=== PATIENT | male | born 1960 | race African-American/Black ===

== ENCOUNTER 2018-04-05 01:26 | Emergency (ER) | payer OTHER ==
[~2018-04-05] VITALS: Ht 177.8 cm; Wt 99.8 kg
[2018-04-05 02:00] VITALS: BP 149/91
[2018-04-05] MEDS ORDERED: Aspirin Baby 81mg ORAL ONE (02:00)
--- NOTE | 2018-04-05 02:06 | Emergency Room Report ---
History of Present Illness General Chief Complaint: General Complaint Source: Patient Present Illness HPI Is a 57-year-old male with no past medical history. He presents with chief complaint of high blood pressure. He had dental surgery recently and was told that blood pressure was elevated. He was given enalapril which helped. He came in tonight because last couple days when his blood pressure high he felt some chest pressure and also neck pain and headache. Went to the pharmacy and his blood pressure was running systolic 150s. He was concerned as when he came in. Denies any diaphoresis, hematuria, shortness of breath. No focal deficit. Denies any other complaint. Allergies: Coded Allergies: No Known Allergies (Unverified , 04/05/18) Patient History Past Medical History: see triage record, old chart reviewed Past Surgical History: none Pertinent Family History: HTN Social History: Denies: smoking Immunizations: other Reviewed Nursing Documentation: PMH: Agreed; PSxH: Agreed Nursing Documentation-PMH Past Medical History: No Stated History Review of Systems Eye: Denies: eye pain, blurred vision ENT: Denies: ear pain, nose congestion, throat swelling Respiratory: Denies: cough, shortness of breath Cardiovascular: Reports: chest pain; Denies: palpitations Gastrointestinal: Denies: abdominal pain, diarrhea, nausea, vomiting Musculoskeletal: Denies: back pain, joint pain Skin: Denies: rash Neurological: Reports: headache; Denies: numbness Endocrine: Denies: increased thirst, increased urine Hematologic/Lymphatic: Denies: easy bruising All Other Systems: negative except mentioned in HPI Physical Exam Vital Signs Date Time Temp Pulse Resp B/P (MAP) Pulse Ox O2 Delivery O2 Flow Rate FiO2 04/05/18 01:30 98.6 67 16 149/91 96 Room Air 98.6 vitals with high blood pressure Sp02 EP Interpretation: reviewed, normal General Appearance: well appearing, no apparent distress, alert Head: normocephalic, atraumatic Eyes: bilateral eye PERRL, bilateral eye EOMI ENT: hearing grossly normal, normal pharynx Neck: full range of motion, supple, no meningismus Respiratory: chest non-tender, lungs clear, normal breath sounds Cardiovascular #1: regular rate, rhythm, no murmur Gastrointestinal: normal bowel sounds, non tender, no mass, no organomegaly, no bruit, non-distended Musculoskeletal: back normal, gait/station normal, normal range of motion Psychiatric: mood/affect normal Skin: warm/dry Medical Decision Making Diagnostic Impression: Primary Impression: Hypertension Qualified Codes: I10 - Essential (primary) hypertension ER Course Patient presents with hypertension. He had a dose of enalapril, 20 mg tonight and 6 PM. Blood pressure improved now. No evidence of endorgan damage. Since he responded to a, we'll put him back on GUERITA inhibitor. Lab Results Impression labs normal EKG Diagnostic Results Rate: normal Rhythm: NSR ST Segments: no acute changes ASA given to the pt in ED: Yes Rhythm Strip Diag. Results Rhythm Strip Time: 02:05 EP Interpretation: yes Rate: 67 Rhythm: NSR, no PVC's, no ectopy Chest X-Ray Diagnostic Results Chest X-Ray Diagnostic Results : Chest X-Ray Ordered: Yes # of Views/Limited/Complete: 1 View Indication: Chest Pain EP Interpretation: Yes Interpretation: no consolidation, no effusion, no pneumothorax, no acute cardiopulmonary disease Impression: No acute disease Electronically Signed by: Arsalan Drake MD Last Vital Signs Date Time Temp Pulse Resp B/P (MAP) Pulse Ox O2 Delivery O2 Flow Rate FiO2 04/05/18 01:30 98.6 67 16 149/91 96 Room Air 98.6 Status: improved Disposition: HOME, SELF-CARE Condition: Stable Scripts Enalapril Maleate* (ENALAPRIL MALEATE*) 20 Mg Tablet 20 MG ORAL DAILY, #90 TAB Prov: Arsalan Drake MD 04/05/18 Referrals: [facility],REFERRING (PCP) Additional Instructions: Follow-up with your doctor in 7 days for recheck on your blood pressure. Return if symptom worsen. Arsalan Drake MD Apr 05, 2018 02:06
[2018-04-05 02:14] LABS: APPEARANCE,URINE CLEAR; BILIRUBIN, URINE NEGATIVE (NEGATIVE); COLOR,URINE PALE YELLOW; GLUCOSE, URINE (UA) NEGATIVE (NEGATIVE); KETONES,URINE NEGATIVE (NEGATIVE); LEUKOCYTE ESTERASE ,URINE NEGATIVE (NEGATIVE); NITRITE,URINE NEGATIVE (NEGATIVE); PH,URINE 5 (4.5-8.0); PROTEIN,URINE NEGATIVE (NEGATIVE); UROBILINOGEN,URINE NORMAL MG/DL (0.0-1.0)
[2018-04-05 02:18] LABS: BASOPHILS % (AUTO) 1.2 % (0.0-2.0); EOSINOPHILS % (AUTO) 2.5 % (0.0-3.0); HEMATOCRIT 44.7 % (42.0-52.0); LYMPHOCYTES % (AUTO) 30.2 % (20.0-45.0); MEAN CORPUSCULAR VOLUME 84 FL (80-99); MONOCYTES % (AUTO) 9.9 % (1.0-10.0); NEUTROPHILS % (AUTO) 56.1 % (45.0-75.0); PLATELET COUNT 273 K/UL (150-450); RED BLOOD COUNT 5.33 M/UL (4.70-6.10); RED CELL DISTRIBUTION WIDTH 10.8 % (11.6-14.8); WHITE BLOOD COUNT 9.6 K/UL (4.8-10.8)
[2018-04-05 02:27] LABS: ANION GAP 11 mmol/L (5-15); BLOOD UREA NITROGEN 11 mg/dL (7-18); CALCIUM 8.7 MG/DL (8.5-10.1); CARBON DIOXIDE 25 MMOL/L (21-32); CHLORIDE 105 MMOL/L (98-107); CREATININE 1.1 MG/DL (0.55-1.30); POTASSIUM 3.3 MMOL/L (3.5-5.1); SODIUM 141 MMOL/L (136-145)
[2018-04-05 02:38] VITALS: BP 130/73
[2018-04-05] MEDS ORDERED: ENALAPRIL MALEA20 MG ORAL (02:39)
[2018-04-05 02:40] LABS: ALANINE AMINOTRANSFERASE 45 U/L (12-78); ALBUMIN 4.1 G/DL (3.4-5.0); ALBUMIN/GLOBULIN RATIO 1.1 (1.0-2.7); ALKALINE PHOSPHATASE 70 U/L (46-116); ASPARTATE AMINO TRANSFERASE 25 U/L (15-37); BILIRUBIN,TOTAL 0.4 MG/DL (0.2-1.0); CKMB 1.8 NG/ML (0.0-3.6); CREATINE KINASE 286 U/L (26-308)
[2018-04-05 02:45] VITALS: BP 130/73
--- NOTE | 2018-04-05 02:50 | Diagnostic Imaging Report ---
EXAM: XR Chest, 1 View CLINICAL HISTORY: CP TECHNIQUE: Frontal view of the chest. COMPARISON: No relevant prior studies available. FINDINGS: Lungs: Unremarkable. No consolidation. Pleural space: Unremarkable. No pneumothorax. Heart: Unremarkable. No cardiomegaly. Mediastinum: Unremarkable. Bones/joints: Unremarkable. IMPRESSION: No radiographic evidence of acute cardiopulmonary disease.
--- NOTE | 2018-04-07 16:11 | Cardiology Report ---
APPROVED REPORT EKG Measurement Heart [id number] Normal sinus rhythm Normal ECG
== END 2018-04-05 02:55 | disposition home or self-care (01) ==
LOC: EMR 01:53
DX: I10 Essential (primary) hypertension (principal); R07.89 Other chest pain; M54.2 Cervicalgia; R51 Headache
CPT/HCPCS: 36415; 71045; 80053; 81003; 82550; 82553; 84484; 85025; 93005; 99284

== ENCOUNTER 2018-07-26 05:15 | Inpatient (IN) | payer OTHER ==
[~2018-07-26] VITALS: Ht 165.1 cm; Wt 99.8 kg
[~2018-07-26 05:15] MED LIST: ENALAPRIL MALEA20 MG ORAL
[2018-07-26] MEDS ORDERED: LOSARTAN POTASS25 MG ORAL (05:23)
[2018-07-26] MEDS ORDERED: ATORVASTATIN CA20 MG ORAL (05:23)
--- NOTE | 2018-07-26 05:28 | NUR ---
ED Nurse Note: pt came from home c/o chest pain 10/23, per pt he feels cold, has weakeness on right leg and pain n sternum feel stabbing
[2018-07-26] MEDS ORDERED: Nitroglycerin 2% oint pkt TOPIC ONE ×2 (05:45→05:52)
[2018-07-26] MEDS ORDERED: Mylanta II UD 30ml ORAL ONE (05:45)
[2018-07-26] MEDS ORDERED: Aspirin Baby 81mg ORAL ONE (05:45)
--- NOTE | 2018-07-26 05:45 | NUR ---
ED Nurse Note: RETURNED FROM BREAK, RESUMED CARE, PT IN BED AWAKE, ALERT AND ORIENTED X 4, PT HERE FROM HOME WITH C/O HAVING CHEST PAIN, PT STATES FIRST FELT A FEW MONTHE AGO, HAS PAIN INTERMITTENTLY THEN IT GOES AWAY, TONIGHT PT STATES PAIN DID NOT STOP AND IT WAS WORSE HE EVER FELT IT, PT DENIES ANY OTHR COMPLAINTS OR DISCOMFORTS, PT IS ON CARDIAC MONITORING, ALL LABS COMPLETED AND PT MEDICATED, WILL MONITOR FOR EFFECTIVENESS AND RESUME CARE PRIMARY NURSE.
--- NOTE | 2018-07-26 05:47 | Emergency Room Report ---
History of Present Illness General Chief Complaint: Chest Pain Source: Patient Present Illness HPI Patient presents with left-sided chest pain radiating to his neck and also his left arm. This is been waking him up at 3 AM for the last several days. 3 weeks ago he started taking omeprazole for severe gastritis and he feels that this was helpful initially but not anymore. He is not taking aspirin at this time but is treated for high cholesterol and hypertension. When he wakes up at 3 AM his blood pressure is extremely high and he feels anxious with shortness of breath. He denies any fevers or chills. Recently he's also had some exertional dyspnea. 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 There is no ankle edema or calf pain. Risk factors for cardiac disease: High cholesterol, hypertension. No family history, smoking or diabetes. He has never been admitted. He's never had a treadmill or angiogram. He was told when last evaluated in the ED that his heart was "fine". No fevers, chills, palpitations, nausea, vomiting, diarrhea, dysuria, abdominal pain, depression, visual changes, headache. 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 Nursing Documentation: PMH: Agreed; PSxH: Agreed Nursing Documentation-PM Past Medical History: No Stated History Hx Hypertension: Yes Review of Systems All Other Systems: negative except mentioned in HPI Physical Exam Vital Signs Date Time Temp Pulse Resp B/P (MAP) Pulse Ox O2 Delivery O2 Flow Rate FiO2 07/26/18 05:17 98.1 72 16 153/87 98 Room Air Sp02 EP Interpretation: reviewed, normal General Appearance: well appearing, no apparent distress, GCS 15 Head: normocephalic Eyes: bilateral eye normal inspection, bilateral eye PERRL ENT: moist mucus membranes Neck: supple Respiratory: lungs clear, normal breath sounds, other - No chest wall tenderness Cardiovascular #1: regular rate, rhythm, no edema Cardiovascular #2: 2+ radial (R) Gastrointestinal: normal inspection, normal bowel sounds, non tender, no mass, non-distended Musculoskeletal: back normal, gait/station normal, normal range of motion Neurologic: alert, oriented x3, grossly normal Psychiatric: mood/affect normal Skin: normal inspection, warm/dry Medical Decision Making Diagnostic Impression: Primary Impression: Chest pain Qualified Codes: R07.9 - Chest pain, unspecified Additional Impressions: History of gastritis Hypertension Qualified Codes: I10 - Essential (primary) hypertension History of high cholesterol ER Course Hypertensive and high cholesterol patient presents with left-sided pain radiating to his neck and shoulder. Differential includes acute myocardial infarction, acute coronary syndrome, gastritis, anxiety amongst others. Evaluation will be with EKG, chest x-ray and labs. The patient retreated with aspirin, nitroglycerin paste, Pepcid and Mylanta. The patient is observed on a molten iron pourer and most likely will need to be admitted for observation. EKG normal sinus rhythm with sinus arrhythmia. CXR normal. Initial troponin neg. CMP lipase normal Pain improved with treatment. States pain is essentially resolved. He still has some neck discomfort. Due to Heart score, needs admission. Admit tele Dr. Pulido. Patient will need cardiac evaluation. Laboratory Tests Test 07/26/18 05:35 White Blood Count 8.7 K/UL (4.8-10.8) Red Blood Count 5.16 M/UL (4.70-6.10) Hemoglobin 15.5 G/DL (14.2-18.0) Hematocrit 45.4 % (42.0-52.0) Mean Corpuscular Volume 88 FL (80-99) Mean Corpuscular Hemoglobin 30.0 PG (27.0-31.0) Mean Corpuscular Hemoglobin Concent 34.1 G/DL (32.0-36.0) Red Cell Distribution Width 12.0 % (11.6-14.8) Platelet Count 228 K/UL (150-450) Mean Platelet Volume 7.7 FL (6.5-10.1) Neutrophils (%) (Auto) 55.3 % (45.0-75.0) Lymphocytes (%) (Auto) 33.3 % (20.0-45.0) Monocytes (%) (Auto) 7.6 % (1.0-10.0) Eosinophils (%) (Auto) 2.4 % (0.0-3.0) Basophils (%) (Auto) 1.5 % (0.0-2.0) Prothrombin Time 10.4 SEC (9.30-11.50) Prothrombin Time INR 1.0 (0.9-1.1) PTT 27 SEC (23-33) Sodium Level 140 MMOL/L (136-145) Potassium Level 3.4 MMOL/L (3.5-5.1) L Chloride Level 104 MMOL/L (98-107) Carbon Dioxide Level 27 MMOL/L (21-32) Anion Gap 9 mmol/L (5-15) Blood Urea Nitrogen 17 mg/dL (7-18) Creatinine 1.0 MG/DL (0.55-1.30) Estimate Glomerular Filtration Rate > 60 mL/min (>60) Glucose Level 118 MG/DL (74-106) H Calcium Level 8.9 MG/DL (8.5-10.1) Total Bilirubin 0.5 MG/DL (0.2-1.0) Aspartate Amino Transferase (AST) 27 U/L (15-37) Alanine Aminotransferase (ALT) 45 U/L (12-78) Alkaline Phosphatase 77 U/L (46-116) Total Creatine Kinase 161 U/L (26-308) Troponin I 0.002 ng/mL (0.000-0.056) Pro-B-Type Natriuretic Peptide 11 pg/mL (0-125) Total Protein 7.7 G/DL (6.4-8.2) Albumin 4.0 G/DL (3.4-5.0) Globulin 3.7 g/dL Albumin/Globulin Ratio 1.1 (1.0-2.7) Lipase 243 U/L (73-393) EKG Diagnostic Results Rate: normal Rhythm: NSR ST Segments: no acute changes Rhythm Strip Diag. Results EP Interpretation: yes Rhythm: NSR, no PVC's, no ectopy Chest X-Ray Diagnostic Results Chest X-Ray Diagnostic Results : Chest X-Ray Ordered: Yes # of Views/Limited/Complete: 1 View Indication: Chest Pain EP Interpretation: Yes Interpretation: no consolidation, no effusion, no pneumothorax Impression: No acute disease Electronically Signed by: Electronically signed by Chon Irvin MD Last Vital Signs Date Time Temp Pulse Resp B/P (MAP) Pulse Ox O2 Delivery O2 Flow Rate FiO2 07/26/18 08:19 98.2 62 14 134/70 98 Room Air 62 Status: improved Disposition: ADMITTED INPATIENT Condition: Serious Referrals: [facility],REFERRING (PCP) Chon Irvin MD Jul 26, 2018 05:47
[2018-07-26 06:00] VITALS: BP 131/82
[2018-07-26 06:18] LABS: BASOPHILS % (AUTO) 1.5 % (0.0-2.0); EOSINOPHILS % (AUTO) 2.4 % (0.0-3.0); HEMATOCRIT 45.4 % (42.0-52.0); HEMOGLOBIN 15.5 G/DL (14.2-18.0); LYMPHOCYTES % (AUTO) 33.3 % (20.0-45.0); MEAN CORPUSCULAR VOLUME 88 FL (80-99); MONOCYTES % (AUTO) 7.6 % (1.0-10.0); NEUTROPHILS % (AUTO) 55.3 % (45.0-75.0); PLATELET COUNT 228 K/UL (150-450); RED BLOOD COUNT 5.16 M/UL (4.70-6.10); WHITE BLOOD COUNT 8.7 K/UL (4.8-10.8)
[2018-07-26 06:32] LABS: ANION GAP 9 mmol/L (5-15); BLOOD UREA NITROGEN 17 mg/dL (7-18); CALCIUM 8.9 MG/DL (8.5-10.1); CARBON DIOXIDE 27 MMOL/L (21-32); CHLORIDE 104 MMOL/L (98-107); POTASSIUM 3.4 MMOL/L (3.5-5.1); SODIUM 140 MMOL/L (136-145)
--- NOTE | 2018-07-26 06:32 | Diagnostic Imaging Report ---
EXAM: XR Chest, 1 View CLINICAL HISTORY: CP TECHNIQUE: Frontal view of the chest. COMPARISON: 04/05/18 FINDINGS: Lungs: Low lung volumes accentuate lung markings. Pleural space: Unremarkable. No pneumothorax. Heart: Unremarkable. No cardiomegaly. Mediastinum: Unremarkable. Bones/joints: Unremarkable. IMPRESSION: Stable chest. No acute disease
[2018-07-26 06:46] LABS: ALANINE AMINOTRANSFERASE 45 U/L (12-78); ALBUMIN/GLOBULIN RATIO 1.1 (1.0-2.7); ALKALINE PHOSPHATASE 77 U/L (46-116); ASPARTATE AMINO TRANSFERASE 27 U/L (15-37); BILIRUBIN,TOTAL 0.5 MG/DL (0.2-1.0); CREATINE KINASE 161 U/L (26-308)
--- NOTE | 2018-07-26 07:05 | NUR ---
ED Nurse Note: patient came from home, complaining about chest pain, weakness in the Right leg. patient in the bed calm, VS are stable, pain 3/10 in his left neck, AAO x 4, skin is warm to touch, dry and intact, respiration is even, nonlabor. Patient denyes any prior admissions to the hospital, no swabs obtained.
[2018-07-26 07:25] VITALS: BP 137/74
--- NOTE | 2018-07-26 08:15 | NUR ---
ED Nurse Note: pt. was transfered to tele unit with RN by ACLS protocol.
--- NOTE | 2018-07-26 08:15 | NUR ---
NURSE NOTES: Received report from DELORIS Fregoso. Pt is alert and oriented X 4. Pt states that his pain has diminished but that he feels tired and hungry. IV is patent. No swelling or redness noted. Belongings are with patient. He states that his son will be here to take everything home including his wallet. Signed belongings list is in the chart. Bed is in lowest position, side rails up X2, and call light is within reach. Will continue to monitor.
--- NOTE | 2018-07-26 08:21 | NUR ---
CASE MANAGEMENT: INITIAL REVIEW 07/26/2018 58 YO M PRESENTED TO ED FROM HOME CC: SEBASTIAN PMHx: HTN. SI: ACS. T 98.1 HR 72 RR 16 B/P 153/87 SATS 98% ON RA K 3.4 GLU 118 IS: ASA PO X1 PEPCID IV X1 MYLANTA PO X1 NITRO BID TOP X1 PATIENT ADMITTED TO TELE 07/26/2018 @ 0630 DCP: PATIENT TO BE DISCHARGED TO HOME ONCE MEDICALLY CLEARED. PLAN OF CARE: CARDIO EVAL Addendum: 07/26/18 at 1427 by Clarice Montana CM INTERQUAL MET FOR ACUTE
--- NOTE | 2018-07-26 09:49 | NUR ---
NURSE NOTES: Called Dr. Pulido for admission orders. Left message for him to call me back
[2018-07-26] MEDS ORDERED: Morphine Sulfate 2mg/ml Inj IVP PRN (10:15)
[2018-07-26] MEDS ORDERED: Morphine Sulfate 4mg/ml Inj (IV/IM USE ONLY) IVP PRN (10:15)
[2018-07-26] MEDS ORDERED: Heparin 25,000u/D5W 500ml 500 ML IV SCH (10:15)
[2018-07-26] MEDS ORDERED: Zolpidem 5mg tab ORAL PRN (10:15)
[2018-07-26] MEDS ORDERED: Miralax 17gm pkt ORAL PRN (10:15)
--- NOTE | 2018-07-26 10:30 | History & Physical ---
History and Physical History & Physicial HP dictated # [id number] Osmani Pulido MD Jul 26, 2018 10:30
[2018-07-26] MEDS ORDERED: Losartan 25mg tab ORAL SCH (11:00)
[2018-07-26] MEDS ORDERED: Aspirin Baby 81mg ORAL SCH (11:00)
[2018-07-26] MEDS: Sucralfate 1gm tab ORAL SCH ×3 (13:29→20:29)
[2018-07-26] MEDS ORDERED: Lexiscan 0.4mg/5ml syringe IV PRN (15:00)
--- NOTE | 2018-07-26 15:02 | Consultation ---
History of Present Illness General Date patient seen: Jul 26, 2018 Time patient seen: 14:59 Chief Complaint: Chest Pain Present Illness HPI 58 year old male c/o substernal chest pain for one month, substernal pressure sensation with high heart rates, no fevers, no recent illnesses> no prior CO Troponin negative x2, CXR clear, vitals stable, EKG no ischemia. No recent ischemia evaluation. Allergies: Coded Allergies: No Known Allergies (Unverified , 04/05/18) Medication History Scheduled Atorvastatin Calcium* (Atorvastatin Calcium*), 20 MG ORAL BEDTIME, (Reported) Enalapril Maleate* (Enalapril Maleate*), 20 MG ORAL DAILY Losartan Potassium* (Losartan Potassium*), 25 MG ORAL DAILY, (Reported) Patient History Healthcare decision maker Resuscitation status Full Code Advanced Directive on File Review of Systems Constitutional: Reports: no symptoms Eye: Reports: no symptoms ENT: Reports: no symptoms Respiratory: Reports: no symptoms Cardiovascular: Reports: chest pain Gastrointestinal: Reports: no symptoms Genitourinary: Reports: no symptoms Musculoskeletal: Reports: no symptoms Skin: Reports: no symptoms Psychiatric: Reports: no symptoms Neurological: Reports: no symptoms Endocrine: Reports: no symptoms Hematologic/Lymphatic: Reports: no symptoms Physical Exam General Appearance: no apparent distress, alert Lines, tubes and drains: peripheral HEENT: normocephalic, atraumatic Neck: non-tender, normal alignment, supple Respiratory/Chest: chest wall non-tender, lungs clear Cardiovascular/Chest: normal peripheral pulses, normal rate Abdomen: normal bowel sounds, non tender, soft, no organomegaly Extremities: normal range of motion, non-tender, normal inspection, no calf tenderness, normal capillary refill, non-pitting Skin Exam: normal pigmentation, warm/dry, cyanotic Lymphatic: anterior cervical Last 24 Hour Vital Signs Date Time Temp Pulse Resp B/P (MAP) Pulse Ox O2 Delivery O2 Flow Rate FiO2 07/26/18 12:00 59 07/26/18 11:49 140/80 07/26/18 11:31 Room Air 07/26/18 08:19 98.2 62 14 134/70 98 Room Air 62 07/26/18 07:25 97.9 65 14 137/74 98 Room Air 07/26/18 06:00 98.1 60 16 131/82 98 Room Air 07/26/18 05:53 153/87 07/26/18 05:45 72 16 Room Air 07/26/18 05:17 98.1 72 16 153/87 98 Room Air Laboratory Tests Test 07/26/18 05:35 07/26/18 10:45 White Blood Count 8.7 K/UL (4.8-10.8) Red Blood Count 5.16 M/UL (4.70-6.10) Hemoglobin 15.5 G/DL (14.2-18.0) Hematocrit 45.4 % (42.0-52.0) Mean Corpuscular Volume 88 FL (80-99) Mean Corpuscular Hemoglobin 30.0 PG (27.0-31.0) Mean Corpuscular Hemoglobin Concent 34.1 G/DL (32.0-36.0) Red Cell Distribution Width 12.0 % (11.6-14.8) Platelet Count 228 K/UL (150-450) Mean Platelet Volume 7.7 FL (6.5-10.1) Neutrophils (%) (Auto) 55.3 % (45.0-75.0) Lymphocytes (%) (Auto) 33.3 % (20.0-45.0) Monocytes (%) (Auto) 7.6 % (1.0-10.0) Eosinophils (%) (Auto) 2.4 % (0.0-3.0) Basophils (%) (Auto) 1.5 % (0.0-2.0) Prothrombin Time 10.4 SEC (9.30-11.50) Prothromb Time International Ratio 1.0 (0.9-1.1) Activated Partial Thromboplast Time 27 SEC (23-33) 29 SEC (23-33) Sodium Level 140 MMOL/L (136-145) Potassium Level 3.4 MMOL/L (3.5-5.1) L Chloride Level 104 MMOL/L (98-107) Carbon Dioxide Level 27 MMOL/L (21-32) Anion Gap 9 mmol/L (5-15) Blood Urea Nitrogen 17 mg/dL (7-18) Creatinine 1.0 MG/DL (0.55-1.30) Estimat Glomerular Filtration Rate > 60 mL/min (>60) Glucose Level 118 MG/DL (74-106) H Calcium Level 8.9 MG/DL (8.5-10.1) Total Bilirubin 0.5 MG/DL (0.2-1.0) Aspartate Amino Transf (AST/SGOT) 27 U/L (15-37) Alanine Aminotransferase (ALT/SGPT) 45 U/L (12-78) Alkaline Phosphatase 77 U/L (46-116) Total Creatine Kinase 161 U/L (26-308) Troponin I 0.002 ng/mL (0.000-0.056) 0.000 ng/mL (0.000-0.056) Pro-B-Type Natriuretic Peptide 11 pg/mL (0-125) Total Protein 7.7 G/DL (6.4-8.2) Albumin 4.0 G/DL (3.4-5.0) Globulin 3.7 g/dL Albumin/Globulin Ratio 1.1 (1.0-2.7) Lipase 243 U/L (73-393) Height (Feet): 5 Height (Inches): 10.00 Weight (Pounds): 220 Medications Current Medications Medications (Trade) Dose Ordered Sig/Zac Route PRN Reason Start Time Stop Time Status Last Admin Dose Admin Acetaminophen (Tylenol) 650 mg Q4H PRN ORAL Mild Pain (Pain Scale 1-3) 07/26/18 10:15 08/25/18 10:14 Aspirin (ASA) 162 mg DAILY ORAL 07/27/18 09:00 08/26/18 08:59 Atorvastatin Calcium (Lipitor) 20 mg BEDTIME ORAL 07/26/18 21:00 08/25/18 20:59 Losartan Potassium (Cozaar) 25 mg DAILY ORAL 07/27/18 09:00 08/26/18 08:59 Morphine Sulfate (Morphine Sulfate) 2 mg Q3H PRN IVP Moderate Pain (Pain Scale 4-6) 07/26/18 10:15 08/02/18 10:14 Morphine Sulfate (Morphine Sulfate) 4 mg Q3H PRN IVP Severe Pain (Pain Scale 7-10) 07/26/18 10:15 08/02/18 10:14 Ondansetron HCl (Zofran) 4 mg Q6H PRN IVP Nausea & Vomiting 07/26/18 10:15 08/25/18 10:14 Pantoprazole (Protonix) 40 mg DAILY ORAL 07/27/18 09:00 08/26/18 08:59 Polyethylene Glycol (Miralax) 17 gm DAILYPRN PRN ORAL Constipation 07/26/18 10:15 08/25/18 10:14 Sucralfate (Carafate) 1 gm FOUR TIMES A DAY ORAL 07/26/18 13:00 08/25/18 12:59 07/26/18 13:29 Zolpidem Tartrate (Ambien) 5 mg HSPRN PRN ORAL Insomnia 07/26/18 10:15 08/02/18 10:14 Assessment/Plan Status: stable Assessment/Plan Assessment Chest pain Angina Hypertension Plan: Serial EKG/Troponin Statin Cardiolite in AM to evaluate for ischemia Endoscopy Losartan for hypertension Ambulate cardiac diet nitro prn chest pain hold heparin gtt PPI Bid DVT ppx Chon Hall MD Jul 26, 2018 15:02
--- NOTE | 2018-07-26 15:08 | GI Initial Consult Note ---
History of Present Illness General Date patient seen: Jul 26, 2018 Time patient seen: 15:05 Reason for Hospitalization: Chest Pain Referring physician: RUTH MATHUR Reason for Consultation: ABDOMINAL PAIN Present Illness HPI Patient presents with left-sided chest pain radiating to his neck and also his left arm. This is been waking him up at 3 AM for the last several days. 3 weeks ago he started taking omeprazole for severe gastritis and he feels that this was helpful initially but not anymore. He is not taking aspirin at this time but is treated for high cholesterol and hypertension. When he wakes up at 3 AM his blood pressure is extremely high and he feels anxious with shortness of breath. He denies any fevers or chills. Recently he's also had some exertional dyspnea. 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 There is no ankle edema or calf pain. Risk factors for cardiac disease: High cholesterol, hypertension. No family history, smoking or diabetes. He has never been admitted. He's never had a treadmill or angiogram. He was told when last evaluated in the ED that his heart was "fine". No fevers, chills, palpitations, nausea, vomiting, diarrhea, dysuria, abdominal pain, depression, visual changes, headache. GI consulted for abdominal pain. Initial HPI as noted above. Patient seen, awake alert and oriented x4. Has complaint of severe epigastric pain. Has been taking medication for GERD, with minimal to no relief. No history of endoscopic or colonoscopy. All labs reviewed, mainly unremarkable. Home Meds Active Scripts Enalapril Maleate* (ENALAPRIL MALEATE*) 20 Mg Tablet, 20 MG ORAL DAILY, #90 TAB Prov:Arsalan Drake MD 04/05/18 Reported Medications Atorvastatin Calcium* (ATORVASTATIN CALCIUM*) 20 Mg Tablet, 20 MG ORAL BEDTIME, TAB 07/26/18 Losartan Potassium* (LOSARTAN POTASSIUM*) 25 Mg Tablet, 25 MG ORAL DAILY, TAB 07/26/18 Med list reviewed/reconciled: Yes Allergies: Coded Allergies: No Known Allergies (Unverified , 04/05/18) Patient History PMH Narrative Past Medical History: see triage record Pertinent Family History: HTN Social History: Denies: smoking, alcohol use, drug use Social History Narrative From [facility]. Gen. application architect Reviewed Nursing Documentation: PMH: Agreed; PSxH: Agreed Nursing Documentation-PMH Past Medical History: No Stated History Hx Hypertension: Yes Social History: Denies: smoking, alcohol use, drug use, other Review of Systems All Other Systems: negative except mentioned in HPI Physical Exam Vital Signs Date Time Temp Pulse Resp B/P (MAP) Pulse Ox O2 Delivery O2 Flow Rate FiO2 07/26/18 05:17 98.1 72 16 153/87 98 Room Air Sp02 EP Interpretation: reviewed, normal Labs Laboratory Tests Test 07/26/18 05:35 07/26/18 10:45 White Blood Count 8.7 K/UL (4.8-10.8) Red Blood Count 5.16 M/UL (4.70-6.10) Hemoglobin 15.5 G/DL (14.2-18.0) Hematocrit 45.4 % (42.0-52.0) Mean Corpuscular Volume 88 FL (80-99) Mean Corpuscular Hemoglobin 30.0 PG (27.0-31.0) Mean Corpuscular Hemoglobin Concent 34.1 G/DL (32.0-36.0) Red Cell Distribution Width 12.0 % (11.6-14.8) Platelet Count 228 K/UL (150-450) Mean Platelet Volume 7.7 FL (6.5-10.1) Neutrophils (%) (Auto) 55.3 % (45.0-75.0) Lymphocytes (%) (Auto) 33.3 % (20.0-45.0) Monocytes (%) (Auto) 7.6 % (1.0-10.0) Eosinophils (%) (Auto) 2.4 % (0.0-3.0) Basophils (%) (Auto) 1.5 % (0.0-2.0) Prothrombin Time 10.4 SEC (9.30-11.50) Prothromb Time International Ratio 1.0 (0.9-1.1) Activated Partial Thromboplast Time 27 SEC (23-33) 29 SEC (23-33) Sodium Level 140 MMOL/L (136-145) Potassium Level 3.4 MMOL/L (3.5-5.1) L Chloride Level 104 MMOL/L (98-107) Carbon Dioxide Level 27 MMOL/L (21-32) Anion Gap 9 mmol/L (5-15) Blood Urea Nitrogen 17 mg/dL (7-18) Creatinine 1.0 MG/DL (0.55-1.30) Estimat Glomerular Filtration Rate > 60 mL/min (>60) Glucose Level 118 MG/DL (74-106) H Calcium Level 8.9 MG/DL (8.5-10.1) Total Bilirubin 0.5 MG/DL (0.2-1.0) Aspartate Amino Transf (AST/SGOT) 27 U/L (15-37) Alanine Aminotransferase (ALT/SGPT) 45 U/L (12-78) Alkaline Phosphatase 77 U/L (46-116) Total Creatine Kinase 161 U/L (26-308) Troponin I 0.002 ng/mL (0.000-0.056) 0.000 ng/mL (0.000-0.056) Pro-B-Type Natriuretic Peptide 11 pg/mL (0-125) Total Protein 7.7 G/DL (6.4-8.2) Albumin 4.0 G/DL (3.4-5.0) Globulin 3.7 g/dL Albumin/Globulin Ratio 1.1 (1.0-2.7) Lipase 243 U/L (73-393) General Appearance: well appearing, no apparent distress, alert Head: normocephalic EENT: PERRL/EOMI, normal ENT inspection Neck: supple Respiratory: normal breath sounds, no respiratory distress Cardiovascular: normal rate Gastrointestinal: normal inspection, non tender, soft, normal bowel sounds, non -distended Rectal: deferred Genitourinary: deferred Musculoskeletal: normal inspection, back normal Neurologic: normal inspection, alert, oriented x3, responsive Psychiatric: normal inspection, judgement/insight normal, memory normal Skin: normal inspection, normal color, no rash, warm/dry, palpation normal, well hydrated Lymphatic: normal inspection, no adenopathy Current Medications Current Medications Medications (Trade) Dose Ordered Sig/Zac Route PRN Reason Start Time Stop Time Status Last Admin Dose Admin Acetaminophen (Tylenol) 650 mg Q4H PRN ORAL Mild Pain (Pain Scale 1-3) 07/26/18 10:15 08/25/18 10:14 Aspirin (ASA) 162 mg DAILY ORAL 07/27/18 09:00 08/26/18 08:59 Atorvastatin Calcium (Lipitor) 20 mg BEDTIME ORAL 07/26/18 21:00 08/25/18 20:59 Losartan Potassium (Cozaar) 25 mg DAILY ORAL 07/27/18 09:00 08/26/18 08:59 Morphine Sulfate (Morphine Sulfate) 2 mg Q3H PRN IVP Moderate Pain (Pain Scale 4-6) 07/26/18 10:15 08/02/18 10:14 Morphine Sulfate (Morphine Sulfate) 4 mg Q3H PRN IVP Severe Pain (Pain Scale 7-10) 07/26/18 10:15 08/02/18 10:14 Ondansetron HCl (Zofran) 4 mg Q6H PRN IVP Nausea & Vomiting 07/26/18 10:15 08/25/18 10:14 Pantoprazole (Protonix) 40 mg DAILY ORAL 07/27/18 09:00 08/26/18 08:59 Polyethylene Glycol (Miralax) 17 gm DAILYPRN PRN ORAL Constipation 07/26/18 10:15 08/25/18 10:14 Regadenoson (Lexiscan) 0.4 mg ONCE PRN IV STRESS TEST 07/26/18 15:00 07/28/18 23:59 Sucralfate (Carafate) 1 gm FOUR TIMES A DAY ORAL 07/26/18 13:00 08/25/18 12:59 07/26/18 13:29 Zolpidem Tartrate (Ambien) 5 mg HSPRN PRN ORAL Insomnia 07/26/18 10:15 08/02/18 10:14 GI: Plan Problems: (1) GERD (gastroesophageal reflux disease) (2) Peptic ulcer disease (3) Abdominal pain (4) History of gastritis Plan Patient scheduled for stress test tomorrow We will follow with upper endoscopy to evaluate epigastric pain Okay to advance diet, n.p.o. at midnight PPI daily Pain management Zofran as needed Follow labs We will follow with additional recommendations post procedure Discussed with Dr. Jay. Thank you for this patient referral, we will follow. The patient was seen and examined at bedside and all new and available data was reviewed in the patients chart. I agree with the above findings, impression and plan. (Patient seen earlier today. Signature stamp does not reflect patient encounter time.). - MD Noelle DobsonNov[facility] Health [facility]ern[facility] Medical Centeroi CBX OPERATOR Jul 26, 2018 15:08
--- NOTE | 2018-07-26 15:15 | History and Physical Report ---
DATE OF ADMISSION: 07/26/2018 CHIEF COMPLAINT: Left-sided chest pain. HISTORY OF PRESENT ILLNESS: This is a 58-year-old male, who lives at home with his elderly mother. The patient has had problems with chest pain usually when he sleeps and it wakes him up in middle of the night. Pain is sharp and also radiates to his neck and left arm. He thinks that when he sits up, he feels better. The patient also has had problems with acid reflux before. He finally came to the emergency room last night and was admitted. PAST MEDICAL HISTORY: Includes history of hypercholesterolemia, history of hypertension. No history of smoking or diabetes. MEDICATIONS: The patient was taking atorvastatin and losartan. SOCIAL HISTORY: No history of smoking or alcohol abuse. 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 ALLERGIES: No known drug allergies. REVIEW OF SYSTEMS: Noncontributory. PHYSICAL EXAMINATION: GENERAL: The patient is a 58-year-old male, in no acute distress. VITAL SIGNS: Blood pressure is 134/70, pulse is 62, temperature 98.2, respirations 14. HEENT: [place] conjunctivae. Anicteric sclerae. NECK: Supple. LUNGS: Clear to auscultation. HEART: S1 and S2 without murmurs or rubs. ABDOMEN: Soft, nontender. No masses. EXTREMITIES: No cyanosis or edema. LABORATORY FINDINGS: CBC shows a WBC of 8700, hematocrit 45.4, hemoglobin is 15.5, platelets 228,000. Chemistry panel shows a serum sodium 140, potassium 3.4, chloride 104, BUN 17, creatinine 1.0. AST 27 and ALT is 45. Troponin was negative. Lipase 243. ASSESSMENT: This is a 58-year-old male, who presents with chest pain which radiates to the left arm however is still atypical because it happens at night without any activity when he is sleeping and what he describes it looks like it is acid reflux burning his esophagus at night. When he sits up or walks around he feels better. However his risk factor includes history of hyperlipidemia as well as hypertension and his age. PLAN: The patient will be on H2 blockers. I will put the patient on Carafate. The patient will be on aspirin once a day. Troponins will be ordered to rule out any ID. Cardiology consultation will be obtained. Based on that, he may need to have some stress test and also an echocardiogram will be ordered to assess his LV function. He will be on his regular medications atorvastatin and blood pressure medication and based on clinical course and findings adjustment will be made in the patient's regimen. Osmani Pulido M.D. DR: Migdalia JOB#: [id number] CC: ALO
--- NOTE | 2018-07-26 15:50 | NUR ---
NURSE NOTES: Per patient, protonix is not working too well. Contacted LUCIANO Zuniga. Per Efrain, change protonix to twice a day
[2018-07-26 17:01] VITALS: BP 136/79
--- NOTE | 2018-07-26 19:24 | NUR ---
HAND-OFF: Report given to DELORIS Dorsey. Plan of care endorsed.
--- NOTE | 2018-07-26 19:30 | NUR ---
NURSE NOTES: Received report from DELORIS David. Patient awake, alert and verbally responsive. No SOB, no acute distress, denies any chest pain nor nay discomfort at this time. IV site on R AC #20, patent and intact. Pt ambulatory with steady gait,. Instructed to press call light for any assistance, verbalized understanding. Will continue plan of care.
[2018-07-26 20:00] VITALS: BP 136/82
[2018-07-26] MEDS: Atorvastatin 20mg tab ORAL SCH (20:28)
[2018-07-27] VITALS: BP 131/80
--- NOTE | 2018-07-27 03:25 | NUR ---
NURSE NOTES: Patient asleep, breathing even and unlabored, no s/sx of pain nor any discomfort at this time. Bed at lowest position, call light within reach. Will continue to monitor.
[2018-07-27 04:00] VITALS: BP 120/75
[2018-07-27 06:46] LABS: BASOPHILS % (AUTO) 1.3 % (0.0-2.0); EOSINOPHILS % (AUTO) 2.2 % (0.0-3.0); HEMATOCRIT 42.7 % (42.0-52.0); HEMOGLOBIN 14.6 G/DL (14.2-18.0); LYMPHOCYTES % (AUTO) 22.9 % (20.0-45.0); MEAN CORPUSCULAR VOLUME 88 FL (80-99); MONOCYTES % (AUTO) 6.4 % (1.0-10.0); NEUTROPHILS % (AUTO) 67.2 % (45.0-75.0); PLATELET COUNT 232 K/UL (150-450); RED BLOOD COUNT 4.83 M/UL (4.70-6.10); RED CELL DISTRIBUTION WIDTH 12.1 % (11.6-14.8)
[2018-07-27 07:03] LABS: ANION GAP 10 mmol/L (5-15); BLOOD UREA NITROGEN 13 mg/dL (7-18); CALCIUM 8.8 MG/DL (8.5-10.1); CARBON DIOXIDE 28 MMOL/L (21-32); CHLORIDE 103 MMOL/L (98-107); CREATININE 1.1 MG/DL (0.55-1.30); INR 1.1 (0.9-1.1); POTASSIUM 4.4 MMOL/L (3.5-5.1); SODIUM 140 MMOL/L (136-145)
[2018-07-27 07:19] LABS: CHOLESTEROL 147 MG/DL (< 200); HDL CHOLESTEROL 33 MG/DL (40-60); TRIGLYCERIDES 154 MG/DL (30-150)
--- NOTE | 2018-07-27 07:29 | NUR ---
HAND-OFF: Report given to DELORIS David. Endorsed plan of care.
--- NOTE | 2018-07-27 07:30 | NUR ---
NURSE NOTES: Received report from Tatyana Dorsey. Pt is resting in bed with no distress noted. Bed is in lowest position, side rails up X2, and call light is within reach. Will continue to monitor.
[2018-07-27 08:00] VITALS: BP 117/73
[2018-07-27] MEDS: Sucralfate 1gm tab ORAL SCH ×4 (08:39→20:15)
[2018-07-27] MEDS: Losartan 25mg tab ORAL SCH (08:40)
[2018-07-27] MEDS: Aspirin Baby 81mg ORAL SCH (08:40)
--- NOTE | 2018-07-27 10:16 | GI Progress Note ---
Assessment/Plan Problems: (1) Abdominal pain ICD Codes: R10.9 - Unspecified abdominal pain SNOMED: 48181196 (2) GERD (gastroesophageal reflux disease) ICD Codes: K21.9 - Gastro-esophageal reflux disease without esophagitis SNOMED: 520260746 (3) Peptic ulcer disease ICD Codes: K27.9 - Peptic ulcer, site unspecified, unspecified as acute or chronic, without hemorrhage or perforation SNOMED: 22797894 (4) History of high cholesterol ICD Codes: Z86.39 - Personal history of other endocrine, nutritional and metabolic disease SNOMED: 105623800 (5) History of gastritis ICD Codes: Z87.19 - Personal history of other diseases of the digestive system SNOMED: 869868166531357 (6) Chest pain ICD Codes: R07.9 - Chest pain, unspecified SNOMED: 61470161 Qualifiers: Qualified Codes: R07.9 - Chest pain, unspecified Status: unchanged Status Narrative Discussed with Dr. Jay Assessment/Plan Patient scheduled for stress test today We will follow with upper endoscopy to evaluate epigastric pain Okay to advance diet, n.p.o. at midnight PPI daily Pain management Zofran as needed Follow labs We will follow with additional recommendations post procedure The patient was seen and examined at bedside and all new and available data was reviewed in the patients chart. I agree with the above findings, impression and plan. (Patient seen earlier today. Signature stamp does not reflect patient encounter time.). - Tripp Jay MD Subjective Subjective Epigastric pain improved Objective Last 24 Hour Vital Signs Date Time Temp Pulse Resp B/P (MAP) Pulse Ox O2 Delivery O2 Flow Rate FiO2 07/27/18 04:00 98.4 59 18 120/75 (90) 98 07/27/18 04:00 59 07/27/18 00:00 61 07/27/18 00:00 97.9 61 18 131/80 (97) 99 07/26/18 21:00 Room Air 07/26/18 20:00 98.3 68 18 136/82 (100) 99 07/26/18 20:00 64 07/26/18 17:01 98.2 66 20 136/79 (98) 98 07/26/18 16:00 63 07/26/18 12:00 59 07/26/18 11:49 140/80 07/26/18 11:31 Room Air Intake and Output 07/26/18 07/27/18 18:59 06:59 Intake Total 480 ml 60 ml Output Total 500 ml Balance -20 ml 60 ml Intake Oral 480 ml 60 ml Output Urine Total 500 ml # Voids 3 Laboratory Tests Test 07/26/18 10:45 07/27/18 05:45 Activated Partial Thromboplast Time 29 SEC (23-33) 30 SEC (23-33) Troponin I 0.000 ng/mL (0.000-0.056) 0.000 ng/mL (0.000-0.056) White Blood Count 9.0 K/UL (4.8-10.8) Red Blood Count 4.83 M/UL (4.70-6.10) Hemoglobin 14.6 G/DL (14.2-18.0) Hematocrit 42.7 % (42.0-52.0) Mean Corpuscular Volume 88 FL (80-99) Mean Corpuscular Hemoglobin 30.3 PG (27.0-31.0) Mean Corpuscular Hemoglobin Concent 34.3 G/DL (32.0-36.0) Red Cell Distribution Width 12.1 % (11.6-14.8) Platelet Count 232 K/UL (150-450) Mean Platelet Volume 7.3 FL (6.5-10.1) Neutrophils (%) (Auto) 67.2 % (45.0-75.0) Lymphocytes (%) (Auto) 22.9 % (20.0-45.0) Monocytes (%) (Auto) 6.4 % (1.0-10.0) Eosinophils (%) (Auto) 2.2 % (0.0-3.0) Basophils (%) (Auto) 1.3 % (0.0-2.0) Prothrombin Time 11.1 SEC (9.30-11.50) Prothromb Time International Ratio 1.1 (0.9-1.1) Sodium Level 140 MMOL/L (136-145) Potassium Level 4.4 MMOL/L (3.5-5.1) Chloride Level 103 MMOL/L (98-107) Carbon Dioxide Level 28 MMOL/L (21-32) Anion Gap 10 mmol/L (5-15) Blood Urea Nitrogen 13 mg/dL (7-18) Creatinine 1.1 MG/DL (0.55-1.30) Estimat Glomerular Filtration Rate > 60 mL/min (>60) Glucose Level 91 MG/DL (74-106) Calcium Level 8.8 MG/DL (8.5-10.1) Triglycerides Level 154 MG/DL (30-150) H Cholesterol Level 147 MG/DL (< 200) LDL Cholesterol 95 mg/dL (<100) HDL Cholesterol 33 MG/DL (40-60) L Cholesterol/HDL Ratio 4.5 (3.3-4.4) H Thyroid Stimulating Hormone (TSH) 1.275 uiU/mL (0.358-3.740) Height (Feet): 5 Height (Inches): 10.00 Weight (Pounds): 220 General Appearance: WD/WN, no apparent distress, alert Cardiovascular: normal rate Respiratory/Chest: normal breath sounds, no respiratory distress Abdominal Exam: normal bowel sounds, non tender, soft Extremities: normal range of motion, non-tender Lakia Drake NP Jul 27, 2018 10:16
--- NOTE | 2018-07-27 11:56 | NUR ---
NURSE NOTES: patient states that he is feeling a lot better. He is not currently in pain and he does not feel the indigestion he normally experiences. Will continue to monitor.
--- NOTE | 2018-07-27 13:28 | General Progress Note ---
Assessment/Plan Problem List: (1) Abdominal pain ICD Codes: R10.9 - Unspecified abdominal pain SNOMED: 12757916 (2) Chest pain ICD Codes: R07.9 - Chest pain, unspecified SNOMED: 62378054 Qualifiers: Qualified Codes: R07.9 - Chest pain, unspecified (3) GERD (gastroesophageal reflux disease) ICD Codes: K21.9 - Gastro-esophageal reflux disease without esophagitis SNOMED: 519208790 (4) Hypertension ICD Codes: I10 - Essential (primary) hypertension SNOMED: 09573037 Qualifiers: Qualified Codes: I10 - Essential (primary) hypertension Assessment/Plan check stress test Await EGD Discussed with Dr Hall Subjective Allergies: Coded Allergies: No Known Allergies (Unverified , 04/05/18) Subjective feels ok Objective Last 24 Hour Vital Signs Date Time Temp Pulse Resp B/P (MAP) Pulse Ox O2 Delivery O2 Flow Rate FiO2 07/27/18 09:00 Room Air 07/27/18 08:00 57 07/27/18 08:00 97.7 57 20 117/73 (88) 97 07/27/18 04:00 98.4 59 18 120/75 (90) 98 07/27/18 04:00 59 07/27/18 00:00 61 07/27/18 00:00 97.9 61 18 131/80 (97) 99 07/26/18 21:00 Room Air 07/26/18 20:00 98.3 68 18 136/82 (100) 99 07/26/18 20:00 64 07/26/18 17:01 98.2 66 20 136/79 (98) 98 07/26/18 16:00 63 Intake and Output 07/26/18 07/27/18 18:59 06:59 Intake Total 480 ml 60 ml Output Total 500 ml Balance -20 ml 60 ml Intake Oral 480 ml 60 ml Output Urine Total 500 ml # Voids 3 Laboratory Tests 07/27/18 05:45: White Blood Count 9.0, Red Blood Count 4.83, Hemoglobin 14.6, Hematocrit 42.7, Mean Corpuscular Volume 88, Mean Corpuscular Hemoglobin 30.3, Mean Corpuscular Hemoglobin Concent 34.3, Red Cell Distribution Width 12.1, Platelet Count 232, Mean Platelet Volume 7.3, Neutrophils (%) (Auto) 67.2, Lymphocytes (%) (Auto) 22.9, Monocytes (%) (Auto) 6.4, Eosinophils (%) (Auto) 2.2, Basophils (%) (Auto ) 1.3, Prothrombin Time 11.1, Prothromb Time International Ratio 1.1, Activated Partial Thromboplast Time 30, Sodium Level 140, Potassium Level 4.4, Chloride Level 103, Carbon Dioxide Level 28, Anion Gap 10, Blood Urea Nitrogen 13, Creatinine 1.1, Estimat Glomerular Filtration Rate > 60, Glucose Level 91, Calcium Level 8.8, Troponin I 0.000, Triglycerides Level 154H, Cholesterol Level 147, LDL Cholesterol 95, HDL Cholesterol 33L, Cholesterol/HDL Ratio 4.5H, Thyroid Stimulating Hormone (TSH) 1.275 Height (Feet): 5 Height (Inches): 10.00 Weight (Pounds): 220 Cardiovascular: regular rhythm Respiratory/Chest: lungs clear Edema: no edema noted Generalized Osmani Pulido MD Jul 27, 2018 13:28
[2018-07-27 16:03] VITALS: BP 114/61
--- NOTE | 2018-07-27 16:20 | Diagnostic Imaging Report ---
Indications: Chest pain Technique: Single day single isotope protocol utilized. Initially, resting images obtained using IV administration 10.2 millicuries 99M technetium Myoview. Subsequently, patient underwent lexiscan stress testing. See cardiology report for details. During Miroslava infusion, IV administration 31.8 mCi 99 M technetium Myoview. SPECT and planar images obtained. SPECT images gated to 8 phases of the cardiac cycle were also obtained, and reformatted into cine images for evaluation of ejection fraction. Comparison: none Findings: Presence or absence of symptoms is not described on the cardiology report . Per cardiology report, resting EKG demonstrates sinus bradycardia. Cardiology report describes diffuse ST and T wave changes following the infusion. Imaging demonstrates normal poststress perfusion. No fixed nor reversible post stress perfusion defects are demonstrated. Normal cardiac chamber size. Calculated post stress ejection fraction 72%. No focal wall motion abnormality Impression: Nonischemic clinical response to pharmacologic stress, per cardiology report Ischemic electrocardiographic response to pharmacologic stress, per cardiology report No imaging findings to suggest ischemia, at level of stress achieved. Calculated post stress ejection fraction greater than 70%
--- NOTE | 2018-07-27 19:28 | NUR ---
NURSE NOTES: Pt received from Leydi Cheng RN alert and oriented x4, sitting up on a chair with no s/s of acute distress. IV site asymptomatic and patent. Informed patient that he will be having EGD tomorrow and must be NPO at midnight, pt verbalized understanding. Bed in lowest position, call light and belongings within reach.
--- NOTE | 2018-07-27 19:32 | NUR ---
CASE MANAGEMENT: REVIEW SI: ACS . GERD T 97.7 HR 55 RR 20 BP 117/73 SAT 97% ROOM AIR TRIGLYCERIDES 154 HDL 33 IS: ASA PO QD COZAAR PO QD LIPITOR PO QHS PROTONIX PO BID TELEMETRY UNIT STATUS DCP: PATIENT IS FROM HOME
[2018-07-27 20:00] VITALS: BP 126/87
[2018-07-27] MEDS: Atorvastatin 20mg tab ORAL SCH (20:15)
--- NOTE | 2018-07-27 20:15 | Cardiology Progress Note ---
Assessment/Plan Status: stable Assessment/Plan Assessment/Plan Status: stable Assessment/Plan Assessment Chest pain Angina Hypertension Plan: Serial EKG/Troponin negative for ACS Stress test negative for ischemia Endoscopy cleared to proceed for friday Continue Losartan for hypertension cardiac diet Test for H. pylori PPI Bid DVT ppx Subjective Cardiovascular: Reports: no symptoms Respiratory: Reports: no symptoms Gastrointestinal/Abdominal: Reports: no symptoms Genitourinary: Reports: no symptoms Subjective No acute events, no chest pain, vitals stable, stress test negative for ischemia , plan for EGD tomorrow Objective Last 24 Hour Vital Signs Date Time Temp Pulse Resp B/P (MAP) Pulse Ox O2 Delivery O2 Flow Rate FiO2 07/27/18 16:03 97.7 62 20 114/61 (78) 97 07/27/18 16:00 62 07/27/18 12:00 55 07/27/18 09:00 Room Air 07/27/18 08:00 57 07/27/18 08:00 97.7 57 20 117/73 (88) 97 07/27/18 04:00 98.4 59 18 120/75 (90) 98 07/27/18 04:00 59 07/27/18 00:00 61 07/27/18 00:00 97.9 61 18 131/80 (97) 99 07/26/18 21:00 Room Air EENT: PERRL/EOMI, normal ENT inspection, TMs normal, pharynx normal Neck: non-tender, normal alignment, supple, normal inspection, no JVD Rhythm: NSR Cardiovascular: normal peripheral pulses, normal rate, regular rhythm Respiratory/Chest: chest wall non-tender, lungs clear, normal breath sounds, no respiratory distress, no accessory muscle use Abdomen: normal bowel sounds, non tender, soft, no organomegaly, no mass Extremities: normal range of motion, non-tender, normal inspection Neurologic: coffee sommelier II-XII grossly normal, no motor/sensory deficits Intake and Output 07/26/18 07/27/18 19:00 07:00 Intake Total 480 ml 60 ml Output Total 500 ml Balance -20 ml 60 ml Intake Oral 480 ml 60 ml Output Urine Total 500 ml # Voids 3 Laboratory Tests Test 07/27/18 05:45 White Blood Count 9.0 K/UL (4.8-10.8) Red Blood Count 4.83 M/UL (4.70-6.10) Hemoglobin 14.6 G/DL (14.2-18.0) Hematocrit 42.7 % (42.0-52.0) Mean Corpuscular Volume 88 FL (80-99) Mean Corpuscular Hemoglobin 30.3 PG (27.0-31.0) Mean Corpuscular Hemoglobin Concent 34.3 G/DL (32.0-36.0) Red Cell Distribution Width 12.1 % (11.6-14.8) Platelet Count 232 K/UL (150-450) Mean Platelet Volume 7.3 FL (6.5-10.1) Neutrophils (%) (Auto) 67.2 % (45.0-75.0) Lymphocytes (%) (Auto) 22.9 % (20.0-45.0) Monocytes (%) (Auto) 6.4 % (1.0-10.0) Eosinophils (%) (Auto) 2.2 % (0.0-3.0) Basophils (%) (Auto) 1.3 % (0.0-2.0) Prothrombin Time 11.1 SEC (9.30-11.50) Prothromb Time International Ratio 1.1 (0.9-1.1) Activated Partial Thromboplast Time 30 SEC (23-33) Sodium Level 140 MMOL/L (136-145) Potassium Level 4.4 MMOL/L (3.5-5.1) Chloride Level 103 MMOL/L (98-107) Carbon Dioxide Level 28 MMOL/L (21-32) Anion Gap 10 mmol/L (5-15) Blood Urea Nitrogen 13 mg/dL (7-18) Creatinine 1.1 MG/DL (0.55-1.30) Estimat Glomerular Filtration Rate > 60 mL/min (>60) Glucose Level 91 MG/DL (74-106) Calcium Level 8.8 MG/DL (8.5-10.1) Troponin I 0.000 ng/mL (0.000-0.056) Triglycerides Level 154 MG/DL (30-150) H Cholesterol Level 147 MG/DL (< 200) LDL Cholesterol 95 mg/dL (<100) HDL Cholesterol 33 MG/DL (40-60) L Cholesterol/HDL Ratio 4.5 (3.3-4.4) H Thyroid Stimulating Hormone (TSH) 1.275 uiU/mL (0.358-3.740) Chon Hall MD Jul 27, 2018 20:15
[2018-07-28] VITALS (9 sets, daily range): BP systolic 118–135; BP diastolic 74–80
[2018-07-28 07:13] LABS: BASOPHILS % (AUTO) 1.1 % (0.0-2.0); EOSINOPHILS % (AUTO) 2.8 % (0.0-3.0); HEMATOCRIT 42.6 % (42.0-52.0); HEMOGLOBIN 14.6 G/DL (14.2-18.0); MEAN CORPUSCULAR VOLUME 88 FL (80-99); MONOCYTES % (AUTO) 7.9 % (1.0-10.0); NEUTROPHILS % (AUTO) 58.3 % (45.0-75.0); PLATELET COUNT 226 K/UL (150-450); RED BLOOD COUNT 4.82 M/UL (4.70-6.10); RED CELL DISTRIBUTION WIDTH 12.2 % (11.6-14.8)
[2018-07-28 07:15] LABS: ANION GAP 8 mmol/L (5-15); BLOOD UREA NITROGEN 17 mg/dL (7-18); CALCIUM 8.9 MG/DL (8.5-10.1); CARBON DIOXIDE 29 MMOL/L (21-32); CHLORIDE 105 MMOL/L (98-107); CREATININE 1.2 MG/DL (0.55-1.30); SODIUM 142 MMOL/L (136-145)
--- NOTE | 2018-07-28 07:22 | NUR ---
HAND-OFF: Report given to Leydi Cheng RN. No acute distress at this time.
--- NOTE | 2018-07-28 07:29 | NUR ---
NURSE NOTES: Received report from Tatyana Anna. Pt is sitting in chair with no distress noted. Pt is NPO as of midnight. Bed is in lowest position, side rails up X2, and call light is within reach. Will continue to monitor.
[2018-07-28] MEDS: Aspirin Baby 81mg ORAL SCH (09:00)
[2018-07-28] MEDS: Losartan 25mg tab ORAL SCH (09:28)
[2018-07-28] MEDS: Sucralfate 1gm tab ORAL SCH ×2 (09:28→13:00)
[2018-07-28] MEDS ORDERED: Propofol 200mg/20ml IV ONE (12:00)
--- NOTE | 2018-07-28 12:14 | Anethesia Preoperative Eval ---
Anesthesia Pre-op PMH/ROS General Date of Evaluation: Jul 28, 2018 Time of Evaluation: 12:12 Anesthesiologist: jan ASA Score: ASA 3 Mallampati Score Class I : Soft palate, uvula, fauces, pillars visible Class II: Soft palate, uvula, fauces visible Class III: Soft palate, base of uvula visible Class IV: Only hard plate visible Mallampati Classification: Class II Surgeon: adam Diagnosis: abdominal pain Surgical Procedure: egd Anesthesia History: none Social History: smoking - nonsmoker Family History: no anesthesia problems Allergies: Coded Allergies: No Known Allergies (Unverified , 04/05/18) Medications: see eMAR Patient NPO?: Yes Past Medical History Cardiovascular: Reports: HTN, other - acs,, hypercholesterolemia, Gastrointestinal/Genitourinary: Reports: GERD Endocrine: Reports: DM Anesthesia Pre-op Phys. Exam Physician Exam Last Vital Signs Date Time Temp Pulse Resp B/P (MAP) Pulse Ox O2 Delivery O2 Flow Rate FiO2 07/28/18 09:28 119/81 07/28/18 09:00 Room Air 07/28/18 04:00 97.6 58 18 95 Constitutional: NAD Neurologic: CN 2-12 intact Cardiovascular: RRR Respiratory: CTA Gastrointestinal: S/NT/ND Airway Exam Mallampati Score: Class II MO: limited Neck: flexible TMD: 2fb ROM: limited Anesthesia Pre-op A/P Labs Hematology Test 07/28/18 06:00 White Blood Count 8.0 K/UL (4.8-10.8) Red Blood Count 4.82 M/UL (4.70-6.10) Hemoglobin 14.6 G/DL (14.2-18.0) Hematocrit 42.6 % (42.0-52.0) Mean Corpuscular Volume 88 FL (80-99) Mean Corpuscular Hemoglobin 30.2 PG (27.0-31.0) Mean Corpuscular Hemoglobin Concent 34.2 G/DL (32.0-36.0) Red Cell Distribution Width 12.2 % (11.6-14.8) Platelet Count 226 K/UL (150-450) Mean Platelet Volume 7.6 FL (6.5-10.1) Neutrophils (%) (Auto) 58.3 % (45.0-75.0) Lymphocytes (%) (Auto) 30.0 % (20.0-45.0) Monocytes (%) (Auto) 7.9 % (1.0-10.0) Eosinophils (%) (Auto) 2.8 % (0.0-3.0) Basophils (%) (Auto) 1.1 % (0.0-2.0) Coagulation Test 07/28/18 06:00 Prothrombin Time 10.7 SEC (9.30-11.50) Prothromb Time International Ratio 1.0 (0.9-1.1) Activated Partial Thromboplast Time 29 SEC (23-33) Chemistry Test 07/28/18 06:00 Sodium Level 142 MMOL/L (136-145) Potassium Level 4.0 MMOL/L (3.5-5.1) Chloride Level 105 MMOL/L (98-107) Carbon Dioxide Level 29 MMOL/L (21-32) Anion Gap 8 mmol/L (5-15) Blood Urea Nitrogen 17 mg/dL (7-18) Creatinine 1.2 MG/DL (0.55-1.30) Estimat Glomerular Filtration Rate > 60 mL/min (>60) Glucose Level 93 MG/DL (74-106) Calcium Level 8.9 MG/DL (8.5-10.1) Troponin I 0.000 ng/mL (0.000-0.056) Risk Assessment & Plan Assessment: asa3 Plan: mac Status Change Before Surgery: No Pre-Antibiotics Drug: Erika Rodriguez MD Jul 28, 2018 12:14
[2018-07-28] MEDS ORDERED: fentaNYL 100 mcg/2 mL IV PRN (12:15)
[2018-07-28] MEDS ORDERED: Atropine Inj 1mg/10ml Syr IV PRN (12:15)
[2018-07-28] MEDS ORDERED: Midazolam 2mg/2ml Inj IVP PRN (12:15)
[2018-07-28] MEDS ORDERED: DiphenhydrAMINE 50mg/ml Inj IVP PRN (12:15)
[2018-07-28] MEDS ORDERED: NS 500ML IVPB ONE (12:25)
--- NOTE | 2018-07-28 12:25 | Pre-Procedure Note/Attestation ---
Pre-Procedure Note/Attestation Complete Prior to Procedure Planned Procedure: not applicable Procedure Narrative: egd Indications for Procedure Pre-Operative Diagnosis: GERD Attestation I attest that I discussed the nature of the procedure; its benefits; risks and complications; and alternatives (and the risks and benefits of such alternatives ), prior to the procedure, with the patient (or the patient's legal quality control representative). I attest that, if there was a reasonable possibility of needing a blood transfusion, the patient (or the patient's legal quality control representative) was given the [facility] standardized written summary, pursuant to the Chinmay Belva Blood Safety Act ([place] Health and Safety Code # 1645, as amended). I attest that I re-evaluated the patient just prior to the surgery and that there has been no change in the patient's H&P, except as documented below: Tripp Jay MD Jul 28, 2018 12:25
--- NOTE | 2018-07-28 12:58 | Cardiology Progress Note ---
Assessment/Plan Status: stable Assessment/Plan Assessment/Plan Status: stable Assessment/Plan Assessment Chest pain Angina Hypertension Plan: Serial EKG/Troponin negative for ACS Stress test negative for ischemia Endoscopy cleared to proceed Continue Losartan for hypertension cardiac diet Test for H. pylori PPI Bid DVT ppx Will sign off at this juncture, thank you Subjective Cardiovascular: Reports: no symptoms Respiratory: Reports: no symptoms Gastrointestinal/Abdominal: Reports: no symptoms Genitourinary: Reports: no symptoms Subjective No acute events, no chest pain, vitals stable, stress test negative for ischemia , plan for EGD this AM Objective Last 24 Hour Vital Signs Date Time Temp Pulse Resp B/P (MAP) Pulse Ox O2 Delivery O2 Flow Rate FiO2 07/28/18 12:45 53 16 120/80 98 Nasal Cannula 3 07/28/18 12:41 97.1 55 18 119/76 98 Nasal Cannula 3 07/28/18 12:00 98.1 72 18 135/79 (97) 99 07/28/18 09:28 119/81 07/28/18 09:00 Room Air 07/28/18 04:00 97.6 58 18 126/79 (95) 95 07/28/18 04:00 59 07/28/18 00:00 97.9 63 18 118/76 (90) 97 07/28/18 00:00 58 07/27/18 21:00 Room Air 07/27/18 20:00 97.7 66 18 126/87 (100) 100 07/27/18 20:00 66 07/27/18 16:03 97.7 62 20 114/61 (78) 97 07/27/18 16:00 62 General Appearance: no apparent distress, alert EENT: PERRL/EOMI, normal ENT inspection, TMs normal Neck: non-tender, normal alignment, supple, normal inspection, no JVD Rhythm: NSR Cardiovascular: normal peripheral pulses, normal rate, regular rhythm Respiratory/Chest: chest wall non-tender, lungs clear, normal breath sounds, no respiratory distress, no accessory muscle use Abdomen: normal bowel sounds, non tender, soft, no organomegaly, no mass Extremities: normal range of motion, non-tender, normal inspection, no calf tenderness, no swelling Neurologic: professional fighter II-XII grossly normal, no motor/sensory deficits Intake and Output 07/27/18 07/28/18 18:59 06:59 Intake Total 490 ml Balance 490 ml Intake Oral 490 ml # Voids 2 2 Laboratory Tests Test 07/28/18 06:00 White Blood Count 8.0 K/UL (4.8-10.8) Red Blood Count 4.82 M/UL (4.70-6.10) Hemoglobin 14.6 G/DL (14.2-18.0) Hematocrit 42.6 % (42.0-52.0) Mean Corpuscular Volume 88 FL (80-99) Mean Corpuscular Hemoglobin 30.2 PG (27.0-31.0) Mean Corpuscular Hemoglobin Concent 34.2 G/DL (32.0-36.0) Red Cell Distribution Width 12.2 % (11.6-14.8) Platelet Count 226 K/UL (150-450) Mean Platelet Volume 7.6 FL (6.5-10.1) Neutrophils (%) (Auto) 58.3 % (45.0-75.0) Lymphocytes (%) (Auto) 30.0 % (20.0-45.0) Monocytes (%) (Auto) 7.9 % (1.0-10.0) Eosinophils (%) (Auto) 2.8 % (0.0-3.0) Basophils (%) (Auto) 1.1 % (0.0-2.0) Prothrombin Time 10.7 SEC (9.30-11.50) Prothromb Time International Ratio 1.0 (0.9-1.1) Activated Partial Thromboplast Time 29 SEC (23-33) Sodium Level 142 MMOL/L (136-145) Potassium Level 4.0 MMOL/L (3.5-5.1) Chloride Level 105 MMOL/L (98-107) Carbon Dioxide Level 29 MMOL/L (21-32) Anion Gap 8 mmol/L (5-15) Blood Urea Nitrogen 17 mg/dL (7-18) Creatinine 1.2 MG/DL (0.55-1.30) Estimat Glomerular Filtration Rate > 60 mL/min (>60) Glucose Level 93 MG/DL (74-106) Calcium Level 8.9 MG/DL (8.5-10.1) Troponin I 0.000 ng/mL (0.000-0.056) Chon Hall MD Jul 28, 2018 12:58
--- NOTE | 2018-07-28 13:03 | Immediate Post-Op Evaluation ---
Immediate Post-Op Evalulation Immediate Post-Op Evalulation Procedure: egd w/bx Date of Evaluation: Jul 28, 2018 Time of Evaluation: 12:53 IV Fluids: 150ml 0.9ns Blood Products: none Estimated Blood Loss: negligible Blood Pressure Systolic: 119 Blood Pressure Diastolic: 76 Pulse Rate: 55 Respiratory Rate: 18 O2 Sat by Pulse Oximetry: 98 Temperature (Fahrenheit): 97.1 Pain Score (1-10): 0 Nausea: No Vomiting: No Complications none Patient Status: awake, reacts, patent Hydration Status: adequate Drug: Erika Rodriguez MD Jul 28, 2018 13:03
--- NOTE | 2018-07-28 13:04 | 48 Hour Post Anesthesia Eval ---
Post Anesthesia Evaluation Procedure: egd w/bx Date of Evaluation: Jul 28, 2018 Time of Evaluation: 12:55 Blood Pressure Systolic: 130 0: 76 Pulse Rate: 55 Respiratory Rate: 18 Temperature (Fahrenheit): 97.1 O2 Sat by Pulse Oximetry: 98 Airway: patent Nausea: No Vomiting: No Pain Intensity: 0 Hydration Status: adequate Cardiopulmonary Status: stable Mental Status/LOC: patient returned to baseline Post-Anesthesia Complications: none Follow-up care needed: N/A Erika Johns MD Jul 28, 2018 13:04
--- NOTE | 2018-07-28 13:47 | NUR ---
NURSE NOTES: Received patient from Vianca Walker Rn (GI). Pt is alert and oriented X4. No pain or distress noted. Pt transferred to bed by primary nurse. Bed is in lowest position, side rails up X2, and call light is within reach. Will continue to monitor.
--- NOTE | 2018-07-28 13:48 | NUR ---
NURSE NOTES: pt is cleared from GI standpoint. Will notify primary MD.
--- NOTE | 2018-07-28 14:06 | Cardiology Report ---
APPROVED REPORT EKG Measurement Heart [id number] Normal sinus rhythm with sinus arrhythmia Normal ECG
[2018-07-28] MEDS ORDERED: PROTONIX40 MG ORAL (14:48)
--- NOTE | 2018-07-28 14:58 | General Progress Note ---
Assessment/Plan Problem List: (1) Abdominal pain ICD Codes: R10.9 - Unspecified abdominal pain SNOMED: 68281732 (2) Chest pain ICD Codes: R07.9 - Chest pain, unspecified SNOMED: 46002787 Qualifiers: Qualified Codes: R07.9 - Chest pain, unspecified (3) GERD (gastroesophageal reflux disease) ICD Codes: K21.9 - Gastro-esophageal reflux disease without esophagitis SNOMED: 340106813 (4) Hypertension ICD Codes: I10 - Essential (primary) hypertension SNOMED: 96235325 Qualifiers: Qualified Codes: I10 - Essential (primary) hypertension Assessment/Plan as is DC today on protonix 40 mg daily Subjective Allergies: Coded Allergies: No Known Allergies (Unverified , 04/05/18) Subjective feels ok Objective Last 24 Hour Vital Signs Date Time Temp Pulse Resp B/P (MAP) Pulse Ox O2 Delivery O2 Flow Rate FiO2 07/28/18 13:21 97.4 55 17 130/74 97 Room Air 07/28/18 13:10 56 16 130/79 97 Room Air 07/28/18 13:04 55 18 98 07/28/18 13:03 55 18 98 07/28/18 13:00 58 18 131/77 96 Room Air 07/28/18 12:50 55 15 130/76 97 Room Air 07/28/18 12:45 53 16 120/80 98 Nasal Cannula 3 07/28/18 12:41 97.1 55 18 119/76 98 Nasal Cannula 3 07/28/18 12:00 72 07/28/18 12:00 98.1 72 18 135/79 (97) 99 07/28/18 09:28 119/81 07/28/18 09:00 Room Air 07/28/18 08:00 56 07/28/18 04:00 97.6 58 18 126/79 (95) 95 07/28/18 04:00 59 07/28/18 00:00 97.9 63 18 118/76 (90) 97 07/28/18 00:00 58 07/27/18 21:00 Room Air 07/27/18 20:00 97.7 66 18 126/87 (100) 100 07/27/18 20:00 66 07/27/18 16:03 97.7 62 20 114/61 (78) 97 07/27/18 16:00 62 Intake and Output 07/27/18 07/28/18 18:59 06:59 Intake Total 490 ml Balance 490 ml Intake Oral 490 ml # Voids 2 2 Laboratory Tests 07/28/18 06:00: White Blood Count 8.0, Red Blood Count 4.82, Hemoglobin 14.6, Hematocrit 42.6, Mean Corpuscular Volume 88, Mean Corpuscular Hemoglobin 30.2, Mean Corpuscular Hemoglobin Concent 34.2, Red Cell Distribution Width 12.2, Platelet Count 226, Mean Platelet Volume 7.6, Neutrophils (%) (Auto) 58.3, Lymphocytes (%) (Auto) 30.0, Monocytes (%) (Auto) 7.9, Eosinophils (%) (Auto) 2.8, Basophils (%) (Auto ) 1.1, Prothrombin Time 10.7, Prothromb Time International Ratio 1.0, Activated Partial Thromboplast Time 29, Sodium Level 142, Potassium Level 4.0, Chloride Level 105, Carbon Dioxide Level 29, Anion Gap 8, Blood Urea Nitrogen 17, Creatinine 1.2, Estimat Glomerular Filtration Rate > 60, Glucose Level 93, Calcium Level 8.9, Troponin I 0.000 Height (Feet): 5 Height (Inches): 5.00 Weight (Pounds): 220 Osmani Pulido MD Jul 28, 2018 14:58
--- NOTE | 2018-07-28 16:30 | Procedure Note ---
DATE OF PROCEDURE: 07/28/2018 SURGEON: Tripp Jay M.D. PROCEDURE: Upper endoscopy with biopsy. INDICATION: Nausea, vomiting, abdominal pain, and chronic GERD. REASON FOR PROCEDURE: The procedure, risks, benefits, and possible consequences, including hemorrhage, aspiration, perforation and infection, and alternative treatments, were explained to the patient/legal guardian by Dr. Tripp Jay and the patient/legal guardian understood and accepted these risks. PROCEDURE IN DETAIL: After informed consent was obtained and the patient was adequately sedated, Olympus upper endoscope was advanced from mouth into the second portion of the duodenum and retroflexion was performed in the stomach. The patient had evidence of diffuse gastritis. Random biopsy from antrum was obtained to rule out H. pylori infection. Otherwise, the rest of the endoscopic examination was within limits. The patient tolerated the procedure without any complications. SUMMARY OF FINDINGS: Gastritis, status post biopsy, otherwise normal upper endoscopic examination. RECOMMENDATIONS: Follow up biopsy results and treat accordingly. I want to thank Dr. Pulido for this kind referral. Tripp Jay M.D. DR: ELYSE JOB#: [id number] CC: Osmani Pulido M.D.; Fax#: [phone]
--- NOTE | 2018-07-28 16:30 | NUR ---
NURSE NOTES: Patient was discharged per MD orders. Heart monitor was removed and returned to [place]. IV was removed with no redness or swelling noted. Signed belongings list is in chart along with signed copy of patients prescription. Original was given to the patient. Pt in stable condition at time of departure.
--- NOTE | 2018-07-29 09:16 | Discharge Summary ---
Discharge Summary Discharge Summary _ DATE OF ADMISSION: 07/26/2018 DATE OF DISCHARGE: 05/2019 DISCHARGED BY: Dr. Pulido REASON FOR ADMISSION: 58 years old male with past medical history of hypertension,, high cholesterol, presented with left-sided chest pain radiating to neck and left arm. Chest pain had been waking him up at night for the last several days. Blood pressure was severely elevated at this time. About 3 weeks ago he started to take omeprazole for severe gastritis and felt that it helped initially, but not anymore. Patient reported shortness of breath while walking up stairs. He denied any peripheral edema or calf pain. Patient denied aspirin use. Patient was taking on medication for high cholesterol and hypertension. He denied fever and chills. Upon evaluation vital signs revealed slightly elevated blood pressure 153/87 , laboratory workup revealed no leukocytosis ,stable hemoglobin hematocrit. Potassium 3.4, otherwise stable electrolytes,. Stable renal parameters. Troponin negative. Pro BNP 11. Total CK 161. EKG revealed normal sinus rhythm , no acute ischemic changes. Lipase 243, stable LFT. Chest x-ray revealed no acute cardiopulmonary pathology. Patient was admitted for further management . CONSULTANTS: information security manager GI specialist Dr. Jay [facility] COURSE: Patient admitted to telemetry floor. Cardiology and GI specialists followed. Antiplatelet therapy with aspirin, and proton pump inhibitor continued. Serial troponin were negative. EKG revealed no acute ischemic changes. Patient was ruled out for acute myocardial infarction. Echocardiogram revealed Myocardial perfusion scan revealed no imaging findings to suggest ischemia at level of stress achieved. Calculated post stress ejection fraction was greater than 70%. Lipid panel revealed stable cholesterol and LDL and borderline triglycerides 154. Antiplatelet therapy with aspirin and statin were continued. Patient was educated on low-fat low-cholesterol cardiac diet. Blood pressure was managed with angiotensin receptor sam/Cozaar and remained stable. DVT prophylaxis provided. Mill Operator Helper cleared patient to proceed with endoscopy. Patient subsequently undergone upper endoscopy with biopsy , which revealed gastritis , status post biopsy , otherwise normal. Patient slowly started on diet as tolerated Antiemetic provided as needed. Patient was able to tolerate diet. Pain management was addressed, and pain was controlled. Carafate was added to medication regimen. Bowel regimen instituted. GI specialist recommended follow-up with biopsy results and treat accordingly. At the time of this dictation, biopsy results still pending. Patient clinically stabilized and was ready for discharge home. FINAL DIAGNOSES: Endoscopy with biopsy Gastritis Peptic ulcer disease GERD Hypertension High cholesterol Chest pain , noncardiac, related to GI issue likely bursitis DISCHARGE MEDICATIONS: See Medication Reconciliation list. DISCHARGE INSTRUCTIONS: Patient was discharged home . Follow up with primary care provider in one week. I have been assigned to dictate discharge summary for this account. I was not involved in the patient's management. Vilma Hernandez NP Jul 29, 2018 09:16
--- NOTE | 2018-07-29 15:24 | NUR ---
*-* INSURANCE *-* ALL CLINICALS AND REVIEWS FAXED TO: [facility] NO LITIGATION SERVICES MANAGER ASSIGNED AT THIS TIME PLEASE FAX THE REVIEW/CLINICAL P- [phone] F- [phone]
== END 2018-07-28 16:28 | disposition home or self-care (01) | DRG 241 ==
LOC: EMR 05:32 → 2E 06:30 → EDBEDREQ 07:16
DX: K29.70 Gastritis, unspecified, without bleeding (principal); E78.00 Pure hypercholesterolemia, unspecified; R07.89 Other chest pain; I10 Essential (primary) hypertension; K21.9 Gastro-esophageal reflux disease without esophagitis; K27.9 Peptic ulcer, site unspecified, unspecified as acute or chronic, without hemorrhage or perforation
CPT/HCPCS: 36415; 71045; 78452; 80048; 80053; 80061; 82550; 83690; 83880; 84443; 84484; 85025; 85610; 85730; 93005; 93017; 93306; 94003; 94150; 96374; 99285; J2785